=== PATIENT | male | born 1990 | race African-American/Black ===

== ENCOUNTER 2021-04-01 21:15 | Emergency (ER) | payer OTHER ==
[~2021-04-01] VITALS: Ht 177.8 cm; Wt 78.0 kg
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
[2021-04-01] MEDS ORDERED: HYDROcodone/APAP 5/325MG 1 TAB TABLET PO ONE (22:00)
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
--- NOTE | 2021-04-01 22:23 | RAD ---
Exam: Chest one view INDICATION: Fall TECHNIQUE: Frontal view of the chest Comparisons: None FINDINGS: The cardiomediastinal silhouette and pulmonary vessels are within normal limits. The lung and pleural spaces are clear. IMPRESSION: No acute cardiopulmonary process. Electronically signed by: Michelle Spicer MD (04/01/2021 10:21 PM) [facility]
[2021-04-01] MEDS ORDERED: LIDOCAINE 1% Multi-Dose 20 ML VIAL. ONE (23:40)
[2021-04-02] MEDS ORDERED: CEPHALEXIN 250 MG CAPSULE. PO SCH (00:30)
[2021-04-02] MEDS ORDERED: hydrOXYzine 10 MG TABLET PO ONE (00:45)
[2021-04-02 00:47] VITALS: BP 135/65
[2021-04-02] MEDS ORDERED: CEPH500T PO (00:48)
== END 2021-04-02 01:00 | disposition home or self-care (01) ==
LOC: EEVIPCON 21:15 → ER 21:15
DX: S02.2XXA Fracture of nasal bones, initial encounter for closed fracture (principal); S51.811A Laceration without foreign body of right forearm, initial encounter; S01.311A Laceration without foreign body of right ear, initial encounter; Y93.89 Activity, other specified; Y92.89 Other specified places as the place of occurrence of the external cause; Y99.8 Other external cause status; Y08.89XA Assault by other specified means, initial encounter
CPT/HCPCS: 12001; 12011; 70450; 70480; 71045; 99285-25